=== PATIENT | male | born 2000 | race Caucasian/White ===

== ENCOUNTER 2024-11-27 00:36 | Emergency (ER) | payer OTHER ==
[~2024-11-27] VITALS: Ht 185.4 cm; Wt 145.0 kg
[2024-11-27] MEDS ORDERED: ALBUTEROL/IPRATROPIUM 3 ML NEB INH ONE (01:15)
[2024-11-27 01:18] LABS: BASOPHILS 0.6 % (0.2-1.2); EOSINOPHILS 3.1 % (0.8-7.0); LYMPHOCYTES 23.9 % (21.8-53.1); MCH 29.4 PG (25.7-32.2); MCHC 35.3 g/dL (32.3-36.5); MCV 83.3 fL (79.0-92.2); MONOCYTES 5.8 % (5.3-12.2); NEUTROPHILS 66.3 % (34.0-67.9); RBC 5.40 M/uL (4.63-6.08)
[2024-11-27 01:29] LABS: SMEAR REVIEW BLOOD SEE COMMENTS
[2024-11-27 01:31] LABS: CORONAVIRUS COVID-19 AG NEGATIVE (NEGATIVE)
[2024-11-27 01:41] LABS: ALT (SGPT) 67 U/L (14-59); AST (SGOT) 319 U/L (15-37); GLOMERULAR FILTRATION RATE,EST 97 mL/min (>60); PROTEIN, TOTAL 7.7 g/dL (6.4-8.2); UREA NITROGEN 12 mg/dL (7-18)
[2024-11-27 02:02] LABS: BLOOD/HGB, URINE NEGATIVE (Negative); KETONE, URINE TRACE (Negative); LEUK ESTERASE, URINE NEGATIVE (negative); NITRITE, URINE NEGATIVE (negative)
[2024-11-27 02:16] LABS: AMPHETAMINES, URINE NEGATIVE (NEGATIVE); BARBITURATES, URINE NEGATIVE (NEGATIVE); BENZODIAZEPINE, URINE NEGATIVE (NEGATIVE); CANNABINOID, URINE POSITIVE (NEGATIVE); COCAINE, URINE NEGATIVE (NEGATIVE); ECSTASY, URINE NEGATIVE (NEGATIVE); FENTANYL, URINE NEGATIVE (NEGATIVE); METHADONE, URINE NEGATIVE (NEGATIVE); OPIATES, URINE NEGATIVE (NEGATIVE); OXYCODONE, URINE NEGATIVE (NEGATIVE); PHENCYCLIDINE, URINE NEGATIVE (NEGATIVE)
[2024-11-27] MEDS ORDERED: ALBUTEROL SULFATE 8 GM HOME.PACK INH ONE (03:15)
[2024-11-27 03:21] VITALS: BP 126/71
--- NOTE | 2024-11-27 12:05 | EKG ---
[facility] [address] [facility] [place] [address] Signed Sinus tachycardia Otherwise normal ECG No previous ECGs available Confirmed by Jaxon Vang DO ([id number]) on 11/27/2024 12:05:23 PM Electronically Signed By: JAXON VANG DO 11/27/24 1205 PATIENT NAME: LATANYAEVANGELICALCHEN CONTRERAS KINDRA Electrocardiogram DATE OF : [birth year] PHYSICIAN: JAXON VANG DO REPORT #: [id number] REPORT IS CONFIDENTIAL AND NOT TO BE RELEASED WITHOUT AUTHORIZATION
== END 2024-11-27 03:21 | disposition home or self-care (01) ==
LOC: ED 00:36
PROVIDERS: Internal Medicine
DX: J45.909 Unspecified asthma, uncomplicated (principal); Z88.0 Allergy status to penicillin
CPT/HCPCS: 36415; 71045; 80053; 80307; 81003; 83605; 83880; 84484; 85025; 85060; 85379; 87040; 93005; 93010; 94640; 96365; 99285-25; J0696